=== PATIENT | male | born 1985 | race Hispanic/Latino ===

== ENCOUNTER 2016-11-13 15:05 | Emergency (ER) | payer MEDICAID ==
[~2016-11-13] VITALS: Ht 175.3 cm; Wt 140.0 kg
[~2016-11-13 15:05] MED LIST: ADVAIR DISKU IN; ADVAIR DISKUS IN; ALBUTEROL SUL0.083 % IN; ANUSOL HC25 MG RE; AUGMENTIN875TAB PO; BENZONATATE200 MG PO; BLEPH-1010 % OU; CEPHALEXIN500 M1 PO; EYE DROP3 OU; MEDDOSEPAK OR; MEDDOSEPAK PO; NO HOME MEDS; PROAIR HFA IN; ROBITUSSIN AC10 ML OR
[2016-11-13] MEDS ORDERED: ADVAIR DISK1 IN ×2 (15:20→15:36)
[2016-11-13] MEDS ORDERED: PREDNISONE10 MG PO (15:36)
[2016-11-13] MEDS ORDERED: VENTOLIN HFA IN (15:36)
[2016-11-13 15:47] VITALS: BP 119/71
== END 2016-11-13 15:47 | disposition home or self-care (01) | DRG 203 ==
LOC: ED 15:05
DX: J45.901 Unspecified asthma with (acute) exacerbation (principal)

== ENCOUNTER 2016-12-09 14:50 | Emergency (ER) | payer OTHER ==
[~2016-12-09] VITALS: Ht 175.3 cm; Wt 141.0 kg
[~2016-12-09 14:50] MED LIST changes: +ADVAIR DISK1 IN; +PREDNISONE10 MG PO; +VENTOLIN HFA IN
[2016-12-09] MEDS ORDERED: ALBUTEROL SUL0.083 % IN (15:38)
[2016-12-09] MEDS ORDERED: VENTOLIN HFA IN (15:38)
[2016-12-09] MEDS ORDERED: ADVAIR DISK1 INH (15:38)
[2016-12-09] MEDS ORDERED: PREDNISONE50 MG PO (15:38)
[2016-12-09 16:34] VITALS: BP 129/78
== END 2016-12-09 16:34 | disposition home or self-care (01) | DRG 203 ==
LOC: ED 14:50
DX: J45.901 Unspecified asthma with (acute) exacerbation (principal); Z91.14 Patient's other noncompliance with medication regimen

== ENCOUNTER 2016-12-22 13:07 | Emergency (ER) | payer OTHER ==
[~2016-12-22] VITALS: Ht 175.3 cm; Wt 125.0 kg
[~2016-12-22 13:07] MED LIST changes: +ADVAIR DISK1 INH; +PREDNISONE50 MG PO
[2016-12-22] MEDS ORDERED: VENTOLIN HFA IN (13:33)
[2016-12-22] MEDS ORDERED: PREDNISONE50 MG PO (13:33)
[2016-12-22] MEDS ORDERED: ADVAIR DISK1 INH (13:33)
[2016-12-22] MEDS ORDERED: ALBUTEROL SUL0.083 % IN (13:33)
[2016-12-22 13:50] VITALS: BP 117/75
== END 2016-12-22 13:50 | disposition home or self-care (01) | DRG 203 ==
LOC: ED 13:07
DX: J45.901 Unspecified asthma with (acute) exacerbation (principal)

== ENCOUNTER 2017-03-04 20:37 | Emergency (ER) | payer OTHER ==
[~2017-03-04] VITALS: Ht 175.3 cm; Wt 140.6 kg
[2017-03-04] MEDS ORDERED: ALBUTEROL SUL0.083 % IN ×2 (21:35→21:36)
[2017-03-04] MEDS ORDERED: ADVAIR DISK1 INH ×2 (21:35→21:36)
[2017-03-04 21:49] VITALS: BP 124/80
== END 2017-03-04 22:10 | disposition home or self-care (01) | DRG 951 ==
LOC: ED 20:37
DX: Z76.0 Encounter for issue of repeat prescription (principal); J45.909 Unspecified asthma, uncomplicated

== ENCOUNTER 2017-04-14 15:34 | Emergency (ER) | payer OTHER ==
[~2017-04-14] VITALS: Ht 175.3 cm; Wt 138.0 kg
[2017-04-14 15:38] VITALS: BP 134/78
[2017-04-14] MEDS ORDERED: AFRIN 12 HOUR0.05 % (15:54)
[2017-04-14] MEDS ORDERED: TYLENOL # 31 TA1 PO (15:54)
[2017-04-14] MEDS ORDERED: PREDNISONE50 MG PO (15:54)
[2017-04-14] MEDS ORDERED: MOTRIN800 MG PO (15:54)
[2017-04-14 16:27] LABS: INFLUENZA A POSITIVE (NONE DETECT); INFLUENZA B NONE DETECTED (NONE DETECT)
[2017-04-14] MEDS ORDERED: TAM75CAP PO (16:31)
[2017-04-15] MEDS ORDERED: ALBUTEROL SUL0.083 % IN (02:08)
== END 2017-04-14 16:47 | disposition home or self-care (01) | DRG 153 ==
LOC: ED 15:34
PROVIDERS: Emergency Medicine
DX: J11.1 Influenza due to unidentified influenza virus with other respiratory manifestations (principal); J45.909 Unspecified asthma, uncomplicated; R09.81 Nasal congestion; R05 Cough; R50.9 Fever, unspecified; R09.89 Other specified symptoms and signs involving the circulatory and respiratory systems; M79.1 Myalgia

== ENCOUNTER 2017-04-14 23:28 | Emergency (ER) | payer OTHER ==
[~2017-04-14] VITALS: Ht 175.3 cm; Wt 137.2 kg
[~2017-04-14 23:28] MED LIST changes: +AFRIN 12 HOUR0.05 %; +MOTRIN800 MG PO; +TAM75CAP PO; +TYLENOL # 31 TA1 PO
--- NOTE | 2017-04-15 00:35 | NUR ---
BREATHING TREATMENT GIVEN. BREATHING TECH. FOR GOOD DEPOSITION TO THE LUNGS.
[2017-04-15] MEDS ORDERED: ALBUTEROL SUL0.083 % IN (02:08)
[2017-04-15 02:56] VITALS: BP 136/92
== END 2017-04-15 02:25 | disposition home or self-care (01) | DRG 203 ==
LOC: ED 23:28
DX: J45.901 Unspecified asthma with (acute) exacerbation (principal); J11.1 Influenza due to unidentified influenza virus with other respiratory manifestations; R06.02 Shortness of breath; R07.9 Chest pain, unspecified; R06.2 Wheezing

== ENCOUNTER 2020-05-31 18:53 | Emergency (ER) | payer OTHER ==
[~2020-05-31] VITALS: Ht 175.3 cm; Wt 152.0 kg
[2020-05-31 20:56] LABS: URINE BILIRUBIN - DIPSTICK NEGATIVE (NEGATIVE); URINE BLOOD DIPSTICK NEGATIVE (NEGATIVE); URINE COLOR YELLOW; URINE GLUCOSE - DIPSTICK NEGATIVE (NEGATIVE); URINE KETONE NEGATIVE (NEGATIVE); URINE LEUK ESTERASE NEGATIVE (NEGATIVE); URINE NITRITE - DIPSTICK NEGATIVE (Negative); URINE PROTEIN - DIPSTICK NEGATIVE (NEG-TRACE); URINE SPECIFIC GRAVITY >=1.030; URINE UROBILINOGEN - DIPSTICK 0.2 E.U./dL (0.2)
[2020-05-31 22:01] LABS: HEMATOCRIT 40.4 % (39.0-50.0); HEMOGLOBIN 13.5 g/dl (14.0-18.0); IMMATURE GRANULOCYTES 0.5 % (0.0-5.0); MEAN CORPUSCULAR HGB 30.1 pG CALC (26.0-32.0); MEAN CORPUSCULAR HGB CONC 33.4 g/dL CAL (32.0-36.0); NEUT# 6.15 thou/uL (1.82-7.42); RED BLOOD COUNT 4.49 mill/uL (4.70-6.10); RED CELL DISTRI WIDTH 13.3 % (11.5-15.5)
[2020-05-31 22:23] LABS: ALBUMIN 4.4 g/dL (3.2-5.0); ALKALINE PHOSPHATASE 114 u/l (38-126); AMYLASE 130 u/l (30-110); ANION GAP 11 (6-22 (CALC)); BUN 16 mg/dL (9-20); BUN/CREATININE RATIO 21 (12-20 (CALC)); CARBON DIOXIDE 26 mmol/l (22-30); CHLORIDE 110 mmol/l (95-108); CREATININE 0.8 mg/dL (0.7-1.3); GFR > 60 ML/MIN (>=60 (CALC)); GFR FOR AFR.AMER. > 60 ML/MIN (>=60 (CALC)); LIPASE 83 u/l (23-300); POTASSIUM 3.8 mmol/l (3.5-5.1); SGOT/AST 70 u/l (17-59); SODIUM 144 mmol/l (137-146)
[2020-05-31 22:26] LABS: BILIRUBIN, TOTAL 0.4 mg/dL (0.0-1.4)
[2020-05-31] MEDS ORDERED: MAGNESIUM296 ML/BTL PO (23:53)
[2020-05-31] MEDS ORDERED: MIRALAX17 GM PO (23:53)
[2020-06-01 00:24] VITALS: BP 152/84
== END 2020-06-01 00:23 | disposition home or self-care (01) ==
LOC: ED 18:53
PROVIDERS: Family Medicine; Student in an Organized Health Care Education/Training Program
DX: K59.00 Constipation, unspecified (principal)

== ENCOUNTER 2021-01-19 03:10 | Emergency (ER) | payer OTHER ==
[~2021-01-19 03:10] MED LIST changes: +MAGNESIUM296 ML/BTL PO; +MIRALAX17 GM PO
[2021-01-19] MEDS ORDERED: MOTRIN200 MG PO (03:43)
[2021-01-19] MEDS ORDERED: HYDROCO/APAP1 T10 PO (03:43)
[2021-01-19 04:28] LABS: URINE BILIRUBIN - DIPSTICK NEGATIVE (NEGATIVE); URINE BLOOD DIPSTICK NEGATIVE (NEGATIVE); URINE COLOR YELLOW; URINE GLUCOSE - DIPSTICK NEGATIVE (NEGATIVE); URINE KETONE NEGATIVE (NEGATIVE); URINE LEUK ESTERASE NEGATIVE (NEGATIVE); URINE PROTEIN - DIPSTICK NEGATIVE (NEG-TRACE); URINE UROBILINOGEN - DIPSTICK 0.2 E.U./dL (0.2)
[2021-01-19 04:29] LABS: URINE NITRITE - DIPSTICK NEGATIVE (Negative)
[2021-01-19 05:59] VITALS: BP 138/76
== END 2021-01-19 06:12 | disposition home or self-care (01) ==
LOC: ED 03:10
PROVIDERS: Emergency Medicine
DX: R33.9 Retention of urine, unspecified (principal); J45.909 Unspecified asthma, uncomplicated; Z98.890 Other specified postprocedural states

== ENCOUNTER 2021-01-22 10:32 | Emergency (ER) | payer OTHER ==
[~2021-01-22 10:32] MED LIST changes: +HYDROCO/APAP1 T10 PO; +MOTRIN200 MG PO
[2021-01-22 12:55] VITALS: BP 145/79
[2021-01-22] MEDS ORDERED: TAMSULOSIN0.4 MG PO ×2 (16:55→17:22)
== END 2021-01-22 12:55 | disposition home or self-care (01) ==
LOC: ED 10:32
DX: Z46.6 Encounter for fitting and adjustment of urinary device (principal); J45.909 Unspecified asthma, uncomplicated; Z98.890 Other specified postprocedural states; R33.9 Retention of urine, unspecified

== ENCOUNTER 2021-01-22 16:26 | Emergency (ER) | payer OTHER ==
[2021-01-22] MEDS ORDERED: TAMSULOSIN0.4 MG PO ×2 (16:55→17:22)
[2021-01-22 17:23] VITALS: BP 151/81
== END 2021-01-22 17:23 | disposition home or self-care (01) ==
LOC: ED 16:26
DX: R33.9 Retention of urine, unspecified (principal); J45.909 Unspecified asthma, uncomplicated

== ENCOUNTER 2021-01-29 11:22 | Emergency (ER) | payer OTHER ==
[~2021-01-29] VITALS: Ht 175.3 cm; Wt 105.0 kg
[~2021-01-29 11:22] MED LIST changes: +TAMSULOSIN0.4 MG PO
[2021-01-29 11:41] VITALS: BP 124/74
== END 2021-01-29 12:55 | disposition home or self-care (01) ==
LOC: ED 11:22
DX: Z46.6 Encounter for fitting and adjustment of urinary device (principal); J45.909 Unspecified asthma, uncomplicated

== ENCOUNTER 2021-06-29 00:32 | Emergency (ER) | payer OTHER ==
[~2021-06-29] VITALS: Ht 175.3 cm; Wt 127.3 kg
[2021-06-29 01:04] LABS: HEMATOCRIT 42.6 % (39.0-50.0); HEMOGLOBIN 14.3 g/dl (14.0-18.0); IMMATURE GRANULOCYTES 0.6 % (0.0-5.0); MEAN CELL VOLUME 92.8 fL CALC (80.0-100.0); MEAN CORPUSCULAR HGB 31.2 pG CALC (26.0-32.0); MEAN CORPUSCULAR HGB CONC 33.6 g/dL CAL (32.0-36.0); NEUT# 7.21 thou/uL (1.82-7.42); RED BLOOD COUNT 4.59 mill/uL (4.70-6.10)
[2021-06-29 01:33] LABS: ALBUMIN 4.2 g/dL (3.2-5.0); ALKALINE PHOSPHATASE 125 u/l (38-126); ANION GAP 14 (6-22 (CALC)); BILIRUBIN, TOTAL 0.5 mg/dL (0.0-1.4); BUN 14 mg/dL (9-20); BUN/CREATININE RATIO 19 (12-20 (CALC)); CARBON DIOXIDE 25 mmol/l (22-30); CHLORIDE 107 mmol/l (95-108); CREATININE 0.7 mg/dL (0.7-1.3); GFR > 60 ML/MIN (>=60 (CALC)); GFR FOR AFR.AMER. > 60 ML/MIN (>=60 (CALC)); POTASSIUM 4.1 mmol/l (3.5-5.1); SGOT/AST 77 u/l (17-59); SODIUM 141 mmol/l (137-146); TOTAL PROTEIN 7.6 g/dL (6.3-8.2)
[2021-06-29 01:34] LABS: URINE BILIRUBIN - DIPSTICK NEGATIVE (NEGATIVE); URINE BLOOD DIPSTICK NEGATIVE (NEGATIVE); URINE COLOR YELLOW; URINE GLUCOSE - DIPSTICK NEGATIVE (NEGATIVE); URINE KETONE NEGATIVE (NEGATIVE); URINE LEUK ESTERASE NEGATIVE (NEGATIVE); URINE PROTEIN - DIPSTICK NEGATIVE (NEG-TRACE); URINE SPECIFIC GRAVITY >=1.030; URINE UROBILINOGEN - DIPSTICK 0.2 E.U./dL (0.2)
[2021-06-29 01:43] LABS: URINE NITRITE - DIPSTICK NEGATIVE (Negative)
[2021-06-29 02:05] VITALS: BP 158/68
== END 2021-06-29 02:05 | disposition home or self-care (01) ==
LOC: ED 00:32
PROVIDERS: Family Medicine
DX: R35.0 Frequency of micturition (principal); K59.00 Constipation, unspecified; J45.909 Unspecified asthma, uncomplicated

== ENCOUNTER 2021-07-13 03:23 | Emergency (ER) | payer OTHER ==
[~2021-07-13] VITALS: Ht 175.3 cm; Wt 123.0 kg
[2021-07-13] MEDS ORDERED: ADVAIR DISK1 IN (03:43)
[2021-07-13 04:10] LABS: HEMATOCRIT 43.4 % (39.0-50.0); HEMOGLOBIN 14.8 g/dl (14.0-18.0); IMMATURE GRANULOCYTES 0.4 % (0.0-5.0); MEAN CELL VOLUME 91.9 fL CALC (80.0-100.0); MEAN CORPUSCULAR HGB 31.4 pG CALC (26.0-32.0); MEAN CORPUSCULAR HGB CONC 34.1 g/dL CAL (32.0-36.0); NEUT# 5.87 thou/uL (1.82-7.42); RED BLOOD COUNT 4.72 mill/uL (4.70-6.10); RED CELL DISTRI WIDTH 12.4 % (11.5-15.5)
[2021-07-13] MEDS ORDERED: PREDNISONE50 MG PO (05:31)
[2021-07-13] MEDS ORDERED: VENTOLIN HFA IN (05:31)
[2021-07-13 05:42] VITALS: BP 130/78
== END 2021-07-13 05:50 | disposition home or self-care (01) ==
LOC: ED 03:23
PROVIDERS: Family Medicine
DX: J45.901 Unspecified asthma with (acute) exacerbation (principal); T48.6X6A Underdosing of antiasthmatics, initial encounter; Z91.128 Patient's intentional underdosing of medication regimen for other reason; Z20.822 Contact with and (suspected) exposure to COVID-19

== ENCOUNTER 2022-09-02 23:10 | Emergency (ER) | payer OTHER ==
[~2022-09-02] VITALS: Ht 175.3 cm; Wt 136.0 kg
[2022-09-02 23:18] VITALS: BP 136/84
[2022-09-02 23:29] VITALS: BP 136/84
[2022-09-02] MEDS ORDERED: PROVENTIL HFA IN (23:39)
[2022-09-02] MEDS ORDERED: PREDNISONE20 MG PO (23:39)
== END 2022-09-03 00:15 | disposition home or self-care (01) ==
LOC: ED 23:10
DX: J45.901 Unspecified asthma with (acute) exacerbation (principal); F41.9 Anxiety disorder, unspecified

== ENCOUNTER 2023-02-17 18:33 | Emergency (ER) | payer OTHER ==
[~2023-02-17] VITALS: Ht 175.3 cm; Wt 154.8 kg
[~2023-02-17 18:33] MED LIST changes: +PREDNISONE20 MG PO; +PROVENTIL HFA IN
[2023-02-17 18:43] VITALS: BP 134/70
[2023-02-17 19:01] VITALS: BP 125/73
[2023-02-17 19:22] LABS: BASO% 0.4 % (0-3); HEMATOCRIT 42.3 % (39.0-50.0); HEMOGLOBIN 14.4 g/dl (14.0-18.0); IMMATURE GRANULOCYTES 0.5 % (0.0-5.0); LYMPH% 24.9 % (15-41); MEAN CELL VOLUME 89.6 fL CALC (80.0-100.0); MEAN CORPUSCULAR HGB 30.5 pG CALC (26.0-32.0); MONO% 6.2 % (2-13); NEUT# 5.89 thou/uL (1.82-7.42); RED BLOOD COUNT 4.72 mill/uL (4.70-6.10); RED CELL DISTRI WIDTH 12.5 % (11.5-15.5)
[2023-02-17 19:31] VITALS: BP 130/73
[2023-02-17 19:39] LABS: ALBUMIN 4.3 g/dL (3.2-5.0); ALKALINE PHOSPHATASE 139 u/l (38-126); ANION GAP 12 (6-22 (CALC)); BILIRUBIN, TOTAL 0.6 mg/dL (0.2-1.3); BUN 11 mg/dL (9-20); BUN/CREATININE RATIO 12 (12-20 (CALC)); CARBON DIOXIDE 27 mmol/l (22-30); CHLORIDE 104 mmol/l (95-108); CREATININE 0.9 mg/dL (0.7-1.3); GFR FOR AFR.AMER. > 60 ML/MIN (>=60 (CALC)); GFR OTHER RACES > 60 ML/MIN (>=60 (CALC)); POTASSIUM 3.9 mmol/l (3.5-5.1); SGOT/AST 74 u/l (17-59); SODIUM 139 mmol/l (137-146); TOTAL PROTEIN 7.8 g/dL (6.3-8.2)
[2023-02-17 20:01] VITALS: BP 133/63
[2023-02-17] MEDS ORDERED: MEDDOSEPAK PO (20:05)
[2023-02-17] MEDS ORDERED: ZPAK PO (20:05)
[2023-02-17] MEDS ORDERED: PROAIR HFA IN (20:05)
[2023-02-17 20:29] VITALS: BP 133/63
== END 2023-02-17 20:43 | disposition home or self-care (01) ==
LOC: ED 18:33
PROVIDERS: Nurse Practitioner
DX: J45.901 Unspecified asthma with (acute) exacerbation (principal); E11.9 Type 2 diabetes mellitus without complications; F41.9 Anxiety disorder, unspecified; Z20.822 Contact with and (suspected) exposure to COVID-19

== ENCOUNTER 2024-06-01 05:31 | Emergency (ER) | payer SELFPAY ==
[~2024-06-01] VITALS: Ht 175.3 cm; Wt 127.0 kg
[~2024-06-01 05:31] MED LIST changes: +ACCU-CHEK FASTCLIX L XX; +BLOOD GLUCOSE MONITO XX; +GLUCOSE METER T1 TES XX; +IMODIUM A-D2 M3 PO; +JARDIANCE25 MG PO; +LANCET MICRO XX; +LANTUS SOL100 UNIT/M IJ; +MONTELUKAST SODI4 MG PO; +OMNICEF300 M1 PO; +PAROXETINE20 MG PO; +VENTOLIN HFA108 MCG IN; +VENTOLIN HFA108 MCG PO; +ZPAK PO
[2024-06-01] MEDS ORDERED: VENTOLIN HFA108 MCG PO (07:01)
[2024-06-01 07:04] VITALS: BP 147/89
== END 2024-06-01 07:04 | disposition home or self-care (01) | DRG 153 ==
LOC: ED 05:31
DX: J06.9 Acute upper respiratory infection, unspecified (principal); F41.9 Anxiety disorder, unspecified; E11.9 Type 2 diabetes mellitus without complications; J45.909 Unspecified asthma, uncomplicated; Z79.84 Long term (current) use of oral hypoglycemic drugs; Z20.822 Contact with and (suspected) exposure to COVID-19

== ENCOUNTER 2024-08-18 19:43 | Emergency (ER) | payer SELFPAY ==
[~2024-08-18] VITALS: Ht 175.3 cm; Wt 127.0 kg
[2024-08-18 19:45] VITALS: BP 144/73
[2024-08-18] MEDS ORDERED: LIDOcaine HCl 1% (Local Anesth.) 20 ML VIAL IM STA (20:19)
[2024-08-18] MEDS ORDERED: KETOROLAC TROMETHAMINE 30 MG/ML SDV IM ONE (20:20)
[2024-08-18] MEDS ORDERED: SULFAMETHOXAZOLE W/TRIMETHOPRI 1 COMBO TAB PO ONE (20:20)
[2024-08-18] MEDS ORDERED: cefTRIAXone SODIUM 2 GM/VIAL SDV IM ONE (20:20)
[2024-08-18] MEDS ORDERED: BACTRIM DS1 TAB PO (20:24)
[2024-08-18] MEDS ORDERED: OMNI-PAC300 MG PO (20:24)
== END 2024-08-18 21:40 | disposition home or self-care (01) | DRG 603 ==
LOC: ED 19:43
DX: L03.314 Cellulitis of groin (principal); E11.9 Type 2 diabetes mellitus without complications; J45.909 Unspecified asthma, uncomplicated; Z79.4 Long term (current) use of insulin
CPT/HCPCS: J0696